=== PATIENT | female | born 1970 | race Caucasian/White ===

== ENCOUNTER 2016-06-25 08:49 | Day surgery (SDC) | payer OTHER ==
[~2016-06-25] VITALS: Ht 149.9 cm; Wt 64.0 kg
[2016-06-25] VITALS (13 sets, daily range): BP systolic 101–139; BP diastolic 60–76; PULSE 66–91; RESP 14–18; Ht 149.9 cm; Wt 64.0 kg
[2016-06-25] MEDS ORDERED: PROPOFOL 20 ML ONE (09:46)
[2016-06-25] MEDS ORDERED: FENTAnyl 50 MCG/ML VIAL ONE (09:46)
[2016-06-25] MEDS ORDERED: MIDAZOLAM 1 MG/ML 2 ML INJ ONE (09:46)
[2016-06-25] MEDS ORDERED: CEFAZOLIN 1 GM INJ ONE (09:46)
[2016-06-25] MEDS ORDERED: METH10TA97 (09:57)
[2016-06-25] MEDS ORDERED: FER325 (09:57)
[2016-06-25] MEDS ORDERED: ATOR10TA65 (09:57)
[2016-06-25] MEDS ORDERED: ONDANSETRON 4 MG INJ IV PRN (10:00)
[2016-06-25] MEDS ORDERED: MEPERIDINE 25 MG INJ IV PRN (10:00)
[2016-06-25] MEDS ORDERED: SOD CHLORIDE 0.9% 1,000 ML IV SCH (10:00)
[2016-06-25] MEDS ORDERED: morphine (1 MG/ML) 10ML SYRINGE IV PRN ×2 (10:00)
[2016-06-25] MEDS ORDERED: DIPHENHYDRAMINE 50 MG INJ IV PRN (10:00)
[2016-06-25] MEDS ORDERED: CEFAZOLIN 1 GM/50 ML (PMX) 50 ML IVPB ONE (10:00)
[2016-06-25] MEDS ORDERED: HYDROmorphONE (0.2 MG/ML) 10ML SYG IV PRN ×2 (10:00)
[2016-06-25] MEDS ORDERED: BUPIVACAINE 0.5% (SDV) 30 ML INJ ONE (10:24)
[2016-06-25] MEDS ORDERED: LIDOCAINE 2% (MDV) 20 ML INJ ONE (10:24)
[2016-06-25] MEDS ORDERED: ONDANSETRON 4 MG INJ ONE (10:48)
[2016-06-25] MEDS ORDERED: METOCLOPRAMIDE 10 MG INJ ONE (10:48)
[2016-06-25] MEDS ORDERED: DEXAMETHASONE 4 MG/ML 1 ML INJ ONE (10:48)
[2016-06-25] MEDS ORDERED: KETOROLAC 30 MG INJ ONE (10:48)
--- NOTE | 2016-06-25 11:18 | OPR ---
DATE OF OPERATION: 06/25/2016 INDICATION: This is a 45-year-old female with a right dorsal ganglion cyst. She requests surgical excision of her dorsal ganglion cyst. Risks, alternatives, benefits, and personnel were discussed w ith the patient. Patient expressed understanding and consents to the operation. PREOPERATIVE DIAGNOSIS: Right dorsal ganglion cyst. PREOPERATIVE DIAGNOSIS: Right dorsal ganglion cyst. OPERATION PERFORMED: 1. Excision of right dorsal ganglion cyst with 3 cm size incision and 2 cm size cyst. 2. Localized adjacent tissue transfer with the use of skin flaps. SURGEON: Aury Kline MD SPECIMEN: Right dorsal ganglion cyst. COMPLICATIONS: None. ANESTHESIA: General. DESCRIPTION OF PROCEDURE: The patient was taken to the OR, prepped and draped in the usual sterile fashion. Surgical timeout was performed. IV antibiotics were given. A transverse incision was ma de over the right dorsal ganglion cyst with a 15 blade. Dissection cautery was carried down to the cyst. The cyst was excised en bloc, but at the base of the cyst, some of the contents are extruded. There was good hemostasis. Due to some tissue defect, localized adjacent tissue transfer ____ pe rformed. Multilayer closure with interrupted 3-0 Vicryl and interrupted 4-0 Monocryl. Local anesth esia was injected. Dry dressings were applied. Dictated By: AURY GREENFIELD/ANTHONY Conf#: [id number] DID#: [id number]
[2016-06-25] MEDS ORDERED: HYDROCODONE/APAP (5/325) TAB PO ONE (11:30)
== END 2016-06-25 12:21 | disposition home or self-care (01) ==
LOC: SDS 08:49
PROVIDERS: ATTEND Surgery
DX: M67.431 Ganglion, right wrist (principal)
CPT/HCPCS: 25111; 84703; 88304; J0690; J1100; J1885; J2250; J2405; J2765; J3010; Z7512; Z7610